=== PATIENT | female | born 1930 | race Two or more races ===

== ENCOUNTER → 2018-02-08 | Outpatient (CLI) | payer OTHER | END | disposition home or self-care (01) | LOC: MAMO-SONO 08:45 | DX: C50.412 Malignant neoplasm of upper-outer quadrant of left female breast (principal); N63.11 Unspecified lump in the right breast, upper outer quadrant ==

== ENCOUNTER 2019-04-19 08:27 | Outpatient (CLI) | payer OTHER | END 2019-04-19 08:43 | disposition home or self-care (01) | LOC: MAMO-SONO 08:27 | DX: E04.2 Nontoxic multinodular goiter (principal); C50.112 Malignant neoplasm of central portion of left female breast; C50.512 Malignant neoplasm of lower-outer quadrant of left female breast; D51.8 Other vitamin B12 deficiency anemias; E55.9 Vitamin D deficiency, unspecified; I10 Essential (primary) hypertension; K57.30 Diverticulosis of large intestine without perforation or abscess without bleeding; K80.64 Calculus of gallbladder and bile duct with chronic cholecystitis without obstruction; Z85.3 Personal history of malignant neoplasm of breast; Z08 Encounter for follow-up examination after completed treatment for malignant neoplasm; Z17.0 Estrogen receptor positive status [ER+]; K82.8 Other specified diseases of gallbladder ==

== ENCOUNTER 2019-05-23 08:16 | Outpatient (CLI) | payer OTHER | END 2019-05-23 08:25 | disposition home or self-care (01) | LOC: NUCLEAR 08:16 | DX: C50.112 Malignant neoplasm of central portion of left female breast (principal); C50.512 Malignant neoplasm of lower-outer quadrant of left female breast | CPT/HCPCS: 78816; A9552 ==

== ENCOUNTER 2019-09-09 08:54 | Outpatient (CLI) | payer OTHER | END 2019-09-09 08:59 | disposition home or self-care (01) | LOC: SONOGRAMA 08:54 | DX: E04.2 Nontoxic multinodular goiter (principal) ==

== ENCOUNTER 2021-04-27 06:00 | Day surgery (SDC) | payer OTHER ==
[~2021-04-27 06:00] MED LIST: CALTRATE PO; CLONAZEPAM0.5 MG PO; COZAAR100 MG PO; EFFEXOR XR75 MG PO; LEVOTHYROXINE25 MCG PO; LOSART PO; PRILOSEC OTC20 MG PO; VITAMIN B PO
== END 2021-04-27 13:55 | disposition home or self-care (01) ==
LOC: CIR.AMB 06:00
PROVIDERS: ATTEND Specialist
DX: C22.1 Intrahepatic bile duct carcinoma (principal); Z20.822 Contact with and (suspected) exposure to COVID-19
CPT/HCPCS: 36561; C1751